=== PATIENT | female | born 1995 | race Two or more races ===

== ENCOUNTER 2019-06-26 02:48 | Emergency (ER) | payer BC ==
[2019-06-26 03:07] VITALS: BMI 28.0
--- NOTE | 2019-06-26 04:50 | PDOC ---
Attending Attestation - Resident Resident Name: Rehan Hernandez - ED Attending Attestation I have performed the following: I have examined & evaluated the patient, The case was reviewed & discussed with the resident, I agree w/resident's findings & plan - HPI HPI: 06/26/19 05:32 see resident hpi - Physicial Exam PE: 06/26/19 05:32 agree with resident exam - Medical Decision Making 06/26/19 05:33 23-year-old male with swelling redness and pain to the left leg foot and ankle, atraumatic Exam consistent with cellulitis, DVT cannot be ruled out clinically Clindamycin administered for infectious changes We will hold for morning ultrasound and likely DC with recheck in 48 hours
[2019-06-26] MEDS ORDERED: VANCOMYCIN 1 GM in D5W (PRE-DOCKED) 1,000 MG/250 ML IVPB ONE (05:25)
[2019-06-26] MEDS ORDERED: CLINDAMYCIN 600MG PREMIX IVPB 600 MG/50 ML BAG IVPB ONE ×2 (05:29→06:21)
--- NOTE | 2019-06-26 05:36 | PDOC ---
History of Present Illness - General Chief Complaint: Edema Stated Complaint: ANKLE SWELLING Time Seen by Provider: 06/26/19 04:47 - History of Present Illness Initial Comments: 06/26/19 06:24 23M with no pmh presents with left swollen and erythematous LLE for the past 2 days. Swelling was worse earlier today but he put a lot of ice on it. No systemic symptoms, no fever, chills, or pain in other joints. Deneis n/v/d, denies IV drug use, insect bite or trauma that he can remember. Never had cellulitis before. Past History - Past Medical History Allergies/Adverse Reactions: Allergies Allergy/AdvReac Type Severity Reaction Status Date / Time No Known Allergies Allergy Verified 06/26/19 03:07 Home Medications: Ambulatory Orders Bupropion HCl [Wellbutrin -] 200 mg PO BID 06/26/19 COPD: No - Psycho Social/Smoking Cessation Hx Smoking History: Current every day smoker Number of Cigarettes Smoked Daily: 2 Information on smoking cessation initiated: Yes Hx Alcohol Use: No Drug/Substance Use Hx: Yes (DAILY) Review of Systems - Review of Systems Able to Perform ROS?: Yes Is the patient limited Uzbek proficient: No Constitutional: No: Symptoms Reported HEENTM: No: Symptoms Reported Respiratory: No: Symptoms reported Cardiac (ROS): No: Symptoms Reported ABD/GI: No: Symptoms Reported : No: Symptoms Reported Musculoskeletal: No: Symptoms Reported Integumentary: Yes: See HPI Neurological: No: Symptoms reported All Other Systems: Reviewed and Negative *Physical Exam - Vital Signs Last Vital Signs Temp Pulse Resp BP Pulse Ox 97.9 F 118 H 18 126/80 97 06/26/19 03:03 06/26/19 03:03 06/26/19 03:03 06/26/19 03:03 06/26/19 03:03 - Physical Exam General Appearance: Yes: Nourished, Appropriately Dressed. No: Apparent Distress HEENT: positive: EOMI, SHAWN, Normal ENT Inspection Respiratory/Chest: positive: Lungs Clear, Normal Breath Sounds. negative: Chest Tender, Respiratory Distress Cardiovascular: positive: Regular Rhythm, S1, S2, Tachycardia Gastrointestinal/Abdominal: positive: Normal Bowel Sounds, Flat, Soft. negative : Tender Musculoskeletal: positive: Normal Inspection. negative: CVA Tenderness Extremity: positive: Normal Range of Motion, Swelling, Erythema, Other (Left lower leg and ankle swollen, erythematous and tender. Cellulitic skin. ) Neurologic: positive: Fully Oriented, Alert, Normal Mood/Affect, Normal Response , Motor Strength 5/5 Medical Decision Making - Medical Decision Making 06/26/19 06:38 23m with LLE cellulitis and swollen ankle. Will treat with antibiotics after obtaining blood cultures and labs. Will get duplex of the leg to r/o DVT as well. Patient signed out to morning team. Discharge - Discharge Information Problems reviewed: Yes Clinical Impression/Diagnosis: Cellulitis of left leg - Follow up/Referral - Patient Discharge Instructions - Post Discharge Activity
[2019-06-26 07:09] LABS: BASO % 0.5 % (0-2.0); EOS % 1.6 % (0-4.5); HEMATOCRIT 43.4 % (35.4-49); LYMPH % 11.4 % (8-40); MCH 31.4 pg (25.7-33.7); MCHC 34.6 g/dl (32.0-35.9); MEAN CELL VOLUME 90.8 fl (80-96); MEAN PLT VOLUME 8.6 fl (7.5-11.1); NEUT % 75.5 % (42.8-82.8); PLATELET COUNT 316 K/MM3 (134-434); RBC 4.78 M/mm3 (4.00-5.60); RDW 12.8 % (11.9-15.9); WHITE BLOOD COUNT 8.8 K/mm3 (4.0-10.0)
--- NOTE | 2019-06-26 07:24 | PDOC ---
*Physical Exam - Vital Signs Last Vital Signs Temp Pulse Resp BP Pulse Ox 97.9 F 118 H 18 126/80 97 06/26/19 03:03 06/26/19 03:03 06/26/19 03:03 06/26/19 03:03 06/26/19 03:03 ED Treatment Course - LABORATORY CBC & Chemistry Diagram: 06/26/19 06:15 06/26/19 06:15 - ADDITIONAL ORDERS Additional order review: Laboratory Results 06/26/19 06:15 Sodium Cancelled Potassium Cancelled Chloride Cancelled Carbon Dioxide Cancelled Anion Gap Cancelled BUN Cancelled Creatinine Cancelled Est GFR (CKD-EPI)AfAm Cancelled Est GFR (CKD-EPI)NonAf Cancelled Random Glucose Cancelled Calcium Cancelled Total Bilirubin Cancelled AST Cancelled ALT Cancelled Alkaline Phosphatase Cancelled Total Protein Cancelled Albumin Cancelled 06/26/19 06:15 RBC 4.78 MCV 90.8 MCHC 34.6 RDW 12.8 MPV 8.6 Neutrophils % 75.5 Lymphocytes % 11.4 Monocytes % 11.0 H Eosinophils % 1.6 Basophils % 0.5 - Medications Given in the ED: ED Medications Discontinued Medications Generic Name Dose Route Start Last Admin Trade Name Freq PRN Reason Stop Dose Admin Clindamycin Phosphate 600 mg in 50 mls @ 100 mls/hr 06/26/19 05:29 06/26/19 06:30 Cleocin 600 Mg Premix Ivpb - IVPB 06/26/19 05:58 100 mls/hr ONCE ONE Administration Protocol Vancomycin HCl 1,000 mg 06/26/19 05:25 06/26/19 05:51 Vancomycin (Pre-Docked) IVPB 06/26/19 05:26 Not Given ONCE ONE Protocol Medical Decision Making - Medical Decision Making 06/26/19 09:55 Sign out received during shift change. 23M p/w lower extremity swelling, erythema, likely representing cellulitis. IV Clinda dose administered. Pending: DVT US to r/o DVT Dispo: Discharge with outpt abx pending US --- US negative for DVT. Plan for outpatient clindamycin with close PCP follow up Discharge - Discharge Information Problems reviewed: Yes Clinical Impression/Diagnosis: Cellulitis of left leg - Admission No - Additional Discharge Information Prescriptions: Clindamycin HCl 300 mg PO TID 7 Days #21 capsule Oxycodone HCl/Acetaminophen [Percocet 5-325 mg Tablet] 1 tab PO BID #4 tablet MDD 2 - Follow up/Referral - Patient Discharge Instructions Patient Printed Discharge Instructions: DI for Cellulitis -- Adult Additional Instructions: You were seen in the Emergency Department for leg swelling. Your blood work was normal. We are diagnosing you with a cellulitis - an infection of the skin and tissue of your leg. We gave you an antibiotic in the ER, and sent a prescription to the hospital pharmacy ([facility]). Please take it every 8 hours for one week, preferably with food. Please return to the ER if you develop high fevers, weakness, cannot walk, or you lose sensation in your legs. - Post Discharge Activity Work/Back to School Note: Back to Work
[2019-06-26 10:21] VITALS: BP 132/71; PULSE 89; TEMP 98.2
== END 2019-06-26 10:45 | disposition home or self-care (01) ==
LOC: EDSEX 02:48 → JER 02:48
DX: L03.116 Cellulitis of left lower limb (principal)
CPT/HCPCS: 36415; 85025; 87040; 93971-TC; 99284-25